=== PATIENT | male | born 1945 | race Caucasian/White ===

== ENCOUNTER 2023-06-29 15:08 | Outpatient (CLI) | payer OTHER, SELFPAY ==
[2023-06-29 15:49] LABS: ALT 17 U/L (16-63); AST 13 U/L (15-37); Albumin 4.1 g/dL (3.4-5.0); Alkaline Phosphatase 59 U/L (46-116); Bilirubin, Direct 0.2 mg/dL (0.0-0.2); Bilirubin, Total 0.8 mg/dL (0.2-1.0)
== END 2023-06-29 15:09 | disposition home or self-care (01) ==
PROVIDERS: Visit Provider Radiology Radiation Oncology
DX: C61 Malignant neoplasm of prostate (principal)
CPT/HCPCS: 36415; 80076

== ENCOUNTER 2023-11-02 15:16 | Outpatient (REF) | payer OTHER, SELFPAY ==
[2023-11-02 13:01] LABS: Bilirubin Negative (Negative); Blood Negative (Negative); Clarity Sl Cloudy (Clear); Glucose Negative (Negative); Ketones Negative (Negative); Leukocyte Esterase Negative (Negative); Nitrite Negative (Negative); Urobilinogen 0.2 mg/dL (Up to 0.2)
== END 2023-11-02 15:17 | disposition home or self-care (01) ==
LOC: LBN 15:16
PROVIDERS: Visit Provider Student in an Organized Health Care Education/Training Program
DX: C61 Malignant neoplasm of prostate (principal)
CPT/HCPCS: 81003